=== PATIENT | female | born 1960 | race Caucasian/White ===

== ENCOUNTER → 2019-01-23 | Outpatient (CLI) | payer OTHER ==
[~2019-01-23] MED LIST: GADOTERATE 7.5 MMOL/15ML VIAL. IVP ONE
--- NOTE | 2019-01-23 10:31 | RAD ---
BRAIN WO/W CONTRAST History: History of lung cancer. Unsteady gait. Technique: Multiplanar, multi sequential pre and postcontrast MR imaging was performed of the brain. Contrast: 25 mL Dotarem. Comparison: None Findings: Multiple sequences are motion degraded. No acute infarct. No intracranial hemorrhage. No mass effect. No hydrocephalus. No pathologic enhancement. T2/FLAIR hyperintensities within the hemispheric white matter, most often due to mild sequela of chronic microvascular ischemia. Imaged orbits are unremarkable. Imaged paranasal sinuses and mastoid air cells are clear. Impression: 1. No acute intracranial abnormality. No evidence of metastatic disease. 2. Mild sequela of chronic microvascular ischemia. Electronically signed by: Jadon Jordan DO (01/23/2019 10:28 AM) [id number]
== END | disposition home or self-care (01) ==
LOC: MRI 08:58
PROVIDERS: ATTEND Internal Medicine Hematology & Oncology
DX: C34.90 Malignant neoplasm of unspecified part of unspecified bronchus or lung (principal); R20.2 Paresthesia of skin
CPT/HCPCS: 70553; A9575

== ENCOUNTER → 2019-01-30 | Outpatient (CLI) | payer OTHER ==
[~2019-01-30] MED LIST changes: +ALBU2.5V5 NEB; +BUPR300T3 PO; +CETI10TA22 PO; +FURO-69 PO; -GADOTERATE 7.5 MMOL/15ML VIAL. IVP ONE; +LEVO25TA4 PO; +MONT10TA49 PO; +SERT100T PO; +TRAZ-118 PO
--- NOTE | 2019-01-31 09:41 | RAD ---
Examination: PET W CT SKULL TO MIDTHIGH History: Lung cancer Comparison/Correlation: 11/29/2018 CT chest with contrast FINDINGS: Net dose 14.2 mCi F-18 FDG was administered intravenously for purposes of PET/CT exam. Blood glucose level at the time of radiotracer administration was 105 mg/dL. Imaging was performed from the skull base to the proximal thighs. Hepatic reference uptake is SUV max of up to 2.7 . Uptake of radiotracer involving the partially visualized head and neck is unremarkable. The patient's known right lateral upper to mid thoracic level pleural-based mass is identified to have SUV max of up to 16 with diffuse intense uptake of radiotracer evident. No other foci of significant uptake are identified involving the chest. Old right rib fractures are present. Emphysematous involvement of the lung ramirez noted. Multiple noncalcified pulmonary nodules measuring less than 0.5 cm diameter reported on the previous CT exam are not as well delineated on the current exam due to the greater section thickness of CT images acquired and respiratory motion. No suspicious focus of intense uptake involving the lung ramirez aside from the pleural-based mass. Uptake of radiotracer involving the abdomen and pelvis is unremarkable. Uptake involving bowel is physiologic in distribution. A 1.5 cm diameter gallstone is present within the gallbladder. No radiopaque collecting system calculi. No ascites or pelvic free fluid. No abdominal aortic aneurysm. No enlarged thoracic, abdominal, or pelvic lymph nodes. No abnormal uptake corresponding to lymph nodes. Urinary bladder is mostly decompressed. This may account for the circumferential wall thickening of urinary bladder which is uniform in appearance. Minimal diverticulosis of the colon is present. Degenerative changes of the cervical spine and lumbar spine are evident. IMPRESSION: Intense uptake corresponding to the patient's known right lateral upper to mid thoracic pleural-based spiculated mass compatible with active neoplastic involvement. No suspicious foci of uptake to suggest metastases. Punctate pulmonary nodule described on CT chest with contrast dated 11/29/2018 are not well delineated on this PET/CT exam. Cholelithiasis. PQRS Compliance Statement: One or more of the following individualized dose reduction techniques were utilized for this examination: 1. Automated exposure control 2. Adjustment of the mA and/or kV according to patient size 3. Use of iterative reconstruction technique Electronically signed by: Oleg Lopez MD (01/31/2019 9:38 AM) [facility]
== END | disposition home or self-care (01) ==
LOC: PETSC 11:15
PROVIDERS: ATTEND Internal Medicine Hematology & Oncology
DX: C34.11 Malignant neoplasm of upper lobe, right bronchus or lung (principal); R20.2 Paresthesia of skin
CPT/HCPCS: 78815; A9552

== ENCOUNTER → 2019-04-22 | Outpatient (CLI) | payer OTHER ==
--- NOTE | 2019-04-22 17:19 | RAD ---
CT scan of the chest without contrast 04/22/2019 CLINICAL HISTORY: Lung cancer post treatment. TECHNIQUE: Unenhanced, contiguous, 5 mm axial sections were obtained through the chest and upper abdomen. One or more of the following individualized dose reduction techniques were utilized for this study: 1. Automated exposure control. 2. Adjustment of the mA and/or kV according to patient size. 3. Use of iterative reconstruction technique. FINDINGS: Comparison is made to the patient's PET/CT scan dated 01/30/2019 along with the patient's previous CT scan of the chest dated 11/29/2018. Atherosclerotic calcification of the thoracic aorta and its branches is noted. The thoracic aorta is tortuous but tapers normally. Scattered coronary artery calcifications are seen. The heart is borderline enlarged. No hilar or mediastinal lymphadenopathy is noted. No axillary lymphadenopathy is seen. A pleural-based mass is seen lateral to the right upper lobe which measures 5.5 x 5.5 x 1.3 cm in AP, craniocaudal and transverse dimensions. This has not significantly changed when compared to the patient's previous studies. Mild emphysematous changes are seen involving both lungs. Patchy areas of groundglass attenuation are seen involving right middle lobe and lingula, unchanged. No area of consolidation is seen. No pneumothorax or pleural effusion is noted. A 9 mm irregular mass is seen involving the right middle lobe which has increased in size since the previous study where it measured 4 mm in greatest diameter. No new pulmonary nodule is definitely seen. Images through the upper abdomen are unchanged. The osseous structures are unchanged. IMPRESSION: 1. The 5.5 cm pleural-based mass lateral to the right upper lobe has not significantly changed. 2. Increase in size of the 9 mm irregular mass involving the right middle lobe consistent with a metastasis. No new pulmonary nodule is seen. Electronically signed by: Dane Pacheco MD (04/22/2019 5:16 PM) [id number]
== END ==
LOC: CT 08:35
PROVIDERS: ATTEND Radiology Radiation Oncology
DX: C34.11 Malignant neoplasm of upper lobe, right bronchus or lung (principal); I70.0 Atherosclerosis of aorta; I25.10 Atherosclerotic heart disease of native coronary artery without angina pectoris; J43.9 Emphysema, unspecified
CPT/HCPCS: 71250